=== PATIENT | female | born 1965 | race Hispanic/Latino ===

== ENCOUNTER → 2023-06-03 | Outpatient (CLI) | payer OTHER ==
[2023-06-03 09:30] LABS: BASOPHILS % (AUTO) 0.5 % (0.0-5.0); EOSINOPHILS % (AUTO) 3.1 % (0.0-8.0); HEMATOCRIT 41.1 % (36-48); LYMPHOCYTES % (AUTO) 46.8 % (21.0-51.0); MEAN CORPUSCULAR HEMOGLOBIN 31.6 pg (27.0-33.0); MEAN CORPUSCULAR HGB CONC 32.8 g/dL (32.0-36.0); MEAN CORPUSCULAR VOLUME 96.3 fL (79-99); MONOCYTES % (AUTO) 8.5 % (3.0-13.0); NEUTROPHILS % (AUTO) 40.9 % (40.0-77.0); PLATELET COUNT (AUTO) 169 K/uL (130-400); RED BLOOD CELL COUNT(AUTO) 4.27 MIL/uL (4.00-5.50); RED CELL DISTRIBUTION WIDTH 13.1 % (11.0-15.5); WHITE BLOOD COUNT (AUTO) 5.9 K/uL (4.8-10.8)
[2023-06-03 09:37] LABS: APPEARANCE,URINE CLEAR (CLEAR); BILIRUBIN,URINE NEGATIVE (NEGATIVE); COLOR,URINE LIGHT-YELLOW (YELLOW); GLUCOSE, URINE (UA) NEGATIVE (NEGATIVE); KETONES,URINE NEGATIVE (NEGATIVE); LEUKOCYTE ESTERASE ,URINE NEGATIVE Leu/uL (NEGATIVE); NITRATE,URINE NEGATIVE (NEGATIVE); OCCULT BLOOD,URINE SMALL (NEGATIVE); PROTEIN,URINE NEGATIVE (NEGATIVE); UROBILINOGEN,URINE 0.2 mg/dL (0.2-1.0)
[2023-06-03 09:38] LABS: HEMOGLOBIN A1C 5.6 % (4.0-6.0)
[2023-06-03 09:41] LABS: BACTERIA,URINE RARE /HPF (None Seen); MUCUS,URINE RARE LPF (None Seen); RBC,URINE 26-50 /HPF (0-1); SQUAMOUS EPITHELIAL CELL,UR RARE /HPF (0-2)
[2023-06-03 09:59] LABS: ALBUMIN 3.8 g/dL (3.5-5.0); CREATININE 0.9 mg/dL (0.5-1.5); POTASSIUM 4.1 mmol/L (3.5-5.1); THYROID STIMULATING HORMONE 8.51 uIU/mL (0.36-3.74); TOTAL PROTEIN, SERUM 7.4 g/dL (6.0-8.3)
== END | disposition home or self-care (01) ==
LOC: LAB 08:38
PROVIDERS: ATTEND Internal Medicine Nephrology
DX: Z00.01 Encounter for general adult medical examination with abnormal findings (principal)
CPT/HCPCS: 36415; 80053; 80061; 81001; 83036; 84443; 85025; 87088

== ENCOUNTER → 2023-07-08 | Outpatient (CLI) | payer OTHER | END | disposition home or self-care (01) | LOC: RAH 07:36 | PROVIDERS: ATTEND Obstetrics & Gynecology | DX: Z12.31 Encounter for screening mammogram for malignant neoplasm of breast (principal) | CPT/HCPCS: 77067 ==

== ENCOUNTER 2023-10-06 04:54 | Emergency (ER) | payer OTHER ==
[~2023-10-06] VITALS: Ht 154.9 cm; Wt 79.4 kg
[2023-10-06 08:02] VITALS: BP 132/74; PULSE 93; RESP 16; O2SAT 98
[2023-10-06 08:31] LABS: RAPID GROUP A STREP negative (NEGATIVE)
[2023-10-06 08:41] LABS: INFLUENZA TYPE B Negative For Type B (NEGATIVE)
[2023-10-06 08:49] LABS: COVID19 (SARS ANTIGEN RAPID) PRESUMPTIVE NEGATIVE (NEGATIVE)
[2023-10-06 09:45] LABS: INFLUENZA TYPE A Positive For Type A (NEGATIVE)
== END 2023-10-06 10:52 | disposition home or self-care (01) ==
LOC: EDH 04:54
DX: J11.1 Influenza due to unidentified influenza virus with other respiratory manifestations (principal); E03.9 Hypothyroidism, unspecified; Z20.822 Contact with and (suspected) exposure to COVID-19
CPT/HCPCS: 87426; 87804; 87880

== ENCOUNTER → 2023-11-26 | Outpatient (CLI) | payer OTHER ==
[2023-11-26 10:39] LABS: APPEARANCE,URINE CLEAR (CLEAR); BILIRUBIN,URINE NEGATIVE (NEGATIVE); COLOR,URINE YELLOW (YELLOW); GLUCOSE, URINE (UA) NEGATIVE (NEGATIVE); KETONES,URINE NEGATIVE (NEGATIVE); LEUKOCYTE ESTERASE ,URINE NEGATIVE Leu/uL (NEGATIVE); NITRATE,URINE NEGATIVE (NEGATIVE); OCCULT BLOOD,URINE SMALL (NEGATIVE); PH,URINE 5.5 (5.0-8.0); PROTEIN,URINE NEGATIVE (NEGATIVE); UROBILINOGEN,URINE 0.2 mg/dL (0.2-1.0)
[2023-11-26 10:47] LABS: ADD UA MICROSCOPIC YES
[2023-11-26 10:50] LABS: MUCUS,URINE RARE LPF (None Seen); SQUAMOUS EPITHELIAL CELL,UR RARE /HPF (0-2)
== END | disposition home or self-care (01) ==
LOC: LAB 09:28
PROVIDERS: ATTEND Internal Medicine Nephrology
DX: N39.0 Urinary tract infection, site not specified (principal)
CPT/HCPCS: 81001; 87088

== ENCOUNTER 2024-02-03 06:19 | Day surgery (SDC) | payer OTHER ==
[2024-02-03] VITALS (11 sets, daily range): BP systolic 90–116; BP diastolic 52–75; PULSE 59–95; RESP 15–17
[~2024-02-03] VITALS: Ht 154.9 cm; Wt 79.8 kg
[~2024-02-03 06:19] MED LIST: ATOR10 PO; CHOL100046 PO; CITA-107 PO; LEVO75CA5 PO; LEVO88CA4 PO; MAGN250T10 PO; OMEP-420 PO; VITA-395 PO
[2024-02-03] MEDS: 0.9%NACL 1000ML 1,000 ML IV ONE (07:00)
[2024-02-03] MEDS ORDERED: PROPOFOL 10 MG/ML 20ML VIAL IV ONE ×2 (08:07)
== END 2024-02-03 09:30 | disposition home or self-care (01) ==
LOC: DAH 06:19 → ENDO 06:19
PROVIDERS: ATTEND Internal Medicine Gastroenterology
DX: Z12.11 Encounter for screening for malignant neoplasm of colon (principal); K57.30 Diverticulosis of large intestine without perforation or abscess without bleeding; R12 Heartburn; R13.10 Dysphagia, unspecified; R14.0 Abdominal distension (gaseous); E78.00 Pure hypercholesterolemia, unspecified; E03.9 Hypothyroidism, unspecified; F41.9 Anxiety disorder, unspecified; F32.A Depression, unspecified; M81.0 Age-related osteoporosis without current pathological fracture; Z82.49 Family history of ischemic heart disease and other diseases of the circulatory system; Z83.3 Family history of diabetes mellitus; Z80.9 Family history of malignant neoplasm, unspecified; Z72.89 Other problems related to lifestyle; Z79.899 Other long term (current) drug therapy; Z79.890 Hormone replacement therapy
CPT/HCPCS: 45378; J7030 ×2; J2704 ×2; A4620; A4215; A4223; A4657; A7002; A4222; A4221; A4663; A4606; J3490

== ENCOUNTER → 2024-02-24 | Outpatient (CLI) | payer OTHER ==
[~2024-02-24] MED LIST changes: +CYAN250010 PO; +LORA10CA PO
[2024-02-24 08:26] LABS: BASOPHILS # (AUTO) 0.05 K/uL (0.00-0.20); BASOPHILS % (AUTO) 0.7 % (0.0-5.0); EOSINOPHILS # (AUTO) 0.12 K/uL (0.00-0.70); EOSINOPHILS % (AUTO) 1.8 % (0.0-8.0); HEMATOCRIT 39.4 % (36-48); IMMATURE GRANULOCYTE ABSOLUTE 0.01 K/uL (0-1); LYMPHOCYTES % (AUTO) 43.9 % (21.0-51.0); MEAN CORPUSCULAR HEMOGLOBIN 32.3 pg (27.0-33.0); MEAN CORPUSCULAR HGB CONC 33.2 g/dL (32.0-36.0); MEAN CORPUSCULAR VOLUME 97.3 fL (79-99); MONOCYTES # (AUTO) 0.5 K/uL (0.1-1.0); MONOCYTES % (AUTO) 7.2 % (3.0-13.0); NEUTROPHILS # (AUTO) 3.2 K/uL (1.8-7.7); NEUTROPHILS % (AUTO) 46.3 % (40.0-77.0); PLATELET COUNT (AUTO) 171 K/uL (130-400); RED BLOOD CELL COUNT(AUTO) 4.05 MIL/uL (4.00-5.50); RED CELL DISTRIBUTION WIDTH 12.9 % (11.0-15.5); WHITE BLOOD COUNT (AUTO) 6.9 K/uL (4.8-10.8)
[2024-02-24 15:32] LABS: HEMOGLOBIN A1C 5.7 % (4.0-6.0)
[2024-02-24 15:37] LABS: ALBUMIN 3.8 g/dL (3.5-5.0); BILIRUBIN,TOTAL 0.3 mg/dL (0.2-1.0); CREATININE 1.1 mg/dL (0.5-1.0); POTASSIUM 3.7 mmol/L (3.5-5.1); THYROID STIMULATING HORMONE 2.43 uIU/mL (0.36-3.74); TOTAL PROTEIN, SERUM 7.4 g/dL (6.0-8.3)
== END | disposition home or self-care (01) ==
LOC: LAB 07:59
PROVIDERS: ATTEND Internal Medicine Gastroenterology
DX: R14.0 Abdominal distension (gaseous) (principal); R10.31 Right lower quadrant pain
CPT/HCPCS: 36415; 80053; 80061; 82784; 83036; 83516; 84443; 85025; 86231; 86364

== ENCOUNTER → 2024-02-25 | Outpatient (CLI) | payer OTHER ==
[~2024-02-25] MED LIST changes: -CYAN250010 PO; -LORA10CA PO
== END | disposition home or self-care (01) ==
LOC: RAH 07:41
PROVIDERS: ATTEND Internal Medicine Gastroenterology
DX: R10.31 Right lower quadrant pain (principal)
CPT/HCPCS: 76700

== ENCOUNTER → 2024-02-29 | Outpatient (CLI) | payer OTHER ==
[~2024-02-29] MED LIST changes: +CYAN250010 PO; +LORA10CA PO
[2024-02-29 09:40] LABS: APPEARANCE,URINE CLEAR (CLEAR); BILIRUBIN,URINE NEGATIVE (NEGATIVE); COLOR,URINE LIGHT-YELLOW (YELLOW); GLUCOSE, URINE (UA) NEGATIVE (NEGATIVE); KETONES,URINE NEGATIVE (NEGATIVE); LEUKOCYTE ESTERASE ,URINE 250 Leu/uL (NEGATIVE); NITRATE,URINE NEGATIVE (NEGATIVE); OCCULT BLOOD,URINE SMALL (NEGATIVE); PROTEIN,URINE NEGATIVE (NEGATIVE); UROBILINOGEN,URINE 0.2 mg/dL (0.2-1.0)
[2024-02-29 11:40] LABS: ADD UA MICROSCOPIC YES
[2024-02-29 11:48] LABS: BACTERIA,URINE RARE /HPF (None Seen); MUCUS,URINE RARE LPF (None Seen); SQUAMOUS EPITHELIAL CELL,UR RARE /HPF (0-2)
== END | disposition home or self-care (01) ==
LOC: LAB 09:03
PROVIDERS: ATTEND Internal Medicine Nephrology
DX: R31.9 Hematuria, unspecified (principal); R10.31 Right lower quadrant pain; R10.12 Left upper quadrant pain; R13.10 Dysphagia, unspecified; R14.0 Abdominal distension (gaseous)
CPT/HCPCS: 81001; 81025; 87086; 87088

== ENCOUNTER 2024-03-03 07:04 | Day surgery (SDC) | payer OTHER ==
[2024-03-03] VITALS (11 sets, daily range): BP systolic 102–124; BP diastolic 51–65; PULSE 58–83; RESP 14–16
[~2024-03-03] VITALS: Ht 154.9 cm; Wt 78.0 kg
[2024-03-03] MEDS: 0.9%NACL 1000ML 1,000 ML IV ONE (08:12)
[2024-03-03] MEDS ORDERED: PROPOFOL 10 MG/ML 20ML VIAL IV ONE ×2 (10:07)
== END 2024-03-03 11:30 | disposition home or self-care (01) ==
LOC: ENDO 07:04 → DAH 07:04 → ENDO 11:30
PROVIDERS: ATTEND Internal Medicine Gastroenterology
DX: R10.13 Epigastric pain (principal); R10.31 Right lower quadrant pain; K44.9 Diaphragmatic hernia without obstruction or gangrene; K31.89 Other diseases of stomach and duodenum; K57.30 Diverticulosis of large intestine without perforation or abscess without bleeding; R13.10 Dysphagia, unspecified; R14.0 Abdominal distension (gaseous); E78.00 Pure hypercholesterolemia, unspecified; F41.9 Anxiety disorder, unspecified; E03.9 Hypothyroidism, unspecified; M81.0 Age-related osteoporosis without current pathological fracture; F32.A Depression, unspecified; Z98.890 Other specified postprocedural states; Z80.0 Family history of malignant neoplasm of digestive organs
CPT/HCPCS: 43239; J7030 ×2; J2704 ×2; A4620; A4215 ×2; A4223; A7002; A4222; A4221; A4663; A4606; 81025; J3490

== ENCOUNTER → 2024-03-21 | Outpatient (CLI) | payer OTHER | END | disposition home or self-care (01) | LOC: RAH 09:57 | PROVIDERS: ATTEND Internal Medicine Gastroenterology | DX: M16.11 Unilateral primary osteoarthritis, right hip (principal); R10.31 Right lower quadrant pain | CPT/HCPCS: 73502 ==

== ENCOUNTER 2024-06-24 19:09 | Emergency (ER) | payer OTHER ==
[~2024-06-24] VITALS: Ht 154.9 cm; Wt 79.4 kg
[2024-06-24] MEDS: IBUPROFEN 600 MG TABLET PO ONE (19:36)
[2024-06-24 21:10] VITALS: BP 124/65; PULSE 74; RESP 20; O2SAT 97
== END 2024-06-24 21:18 | disposition home or self-care (01) ==
LOC: EDH 19:09
DX: S60.221A Contusion of right hand, initial encounter (principal); X58.XXXA Exposure to other specified factors, initial encounter; Y93.89 Activity, other specified; Y92.89 Other specified places as the place of occurrence of the external cause; Y99.8 Other external cause status; E78.00 Pure hypercholesterolemia, unspecified; E03.9 Hypothyroidism, unspecified; Z79.899 Other long term (current) drug therapy
CPT/HCPCS: 29125; 73110; 73130

== ENCOUNTER 2024-08-08 13:31 | Emergency (ER) | payer OTHER ==
[~2024-08-08] VITALS: Ht 154.9 cm; Wt 78.5 kg
[2024-08-08 13:51] LABS: BASOPHILS # (AUTO) 0.03 K/uL (0.00-0.20); BASOPHILS % (AUTO) 0.5 % (0.0-5.0); EOSINOPHILS # (AUTO) 0.27 K/uL (0.00-0.70); EOSINOPHILS % (AUTO) 4.2 % (0.0-8.0); HEMATOCRIT 41.1 % (36-48); IMMATURE GRANULOCYTE ABSOLUTE 0.01 K/uL (0-1); LYMPHOCYTES # (AUTO) 2.1 K/uL (1.0-4.8); MEAN CORPUSCULAR HEMOGLOBIN 31.8 pg (27.0-33.0); MEAN CORPUSCULAR HGB CONC 34.3 g/dL (32.0-36.0); MEAN CORPUSCULAR VOLUME 92.8 fL (79-99); MONOCYTES # (AUTO) 0.6 K/uL (0.1-1.0); MONOCYTES % (AUTO) 8.5 % (3.0-13.0); NEUTROPHILS # (AUTO) 3.5 K/uL (1.8-7.7); NEUTROPHILS % (AUTO) 53.6 % (40.0-77.0); PLATELET COUNT (AUTO) 184 K/uL (130-400); RED BLOOD CELL COUNT(AUTO) 4.43 MIL/uL (4.00-5.50); RED CELL DISTRIBUTION WIDTH 12.7 % (11.0-15.5); WHITE BLOOD COUNT (AUTO) 6.5 K/uL (4.8-10.8)
[2024-08-08 14:09] LABS: B-TYPE NATRIURETIC PEPTIDE 10 pg/mL (0-100)
[2024-08-08 14:55] LABS: APPEARANCE,URINE CLEAR (CLEAR); BILIRUBIN,URINE NEGATIVE (NEGATIVE); COLOR,URINE LIGHT-YELLOW (YELLOW); GLUCOSE, URINE (UA) NEGATIVE (NEGATIVE); KETONES,URINE NEGATIVE (NEGATIVE); LEUKOCYTE ESTERASE ,URINE NEGATIVE Leu/uL (NEGATIVE); NITRATE,URINE NEGATIVE (NEGATIVE); OCCULT BLOOD,URINE SMALL (NEGATIVE); PROTEIN,URINE NEGATIVE (NEGATIVE); UROBILINOGEN,URINE 0.2 mg/dL (0.2-1.0)
[2024-08-08 14:56] LABS: ADD UA MICROSCOPIC YES
[2024-08-08 14:57] LABS: RBC,URINE 0-1 /HPF (0-1); SQUAMOUS EPITHELIAL CELL,UR RARE /HPF (0-2); WBC,URINE 0-1 /HPF (0-1)
[2024-08-08 15:25] VITALS: BP 133/70; PULSE 59; RESP 14; TEMP 98.4; O2SAT 100
== END 2024-08-08 16:08 | disposition home or self-care (01) ==
LOC: EDH 13:31
DX: R07.89 Other chest pain (principal); E03.9 Hypothyroidism, unspecified; E78.00 Pure hypercholesterolemia, unspecified; Z79.899 Other long term (current) drug therapy; Z98.890 Other specified postprocedural states
CPT/HCPCS: 36415; 71045; 80048; 81001; 82550; 83880; 84484; 85025; 93005

== ENCOUNTER → 2024-08-25 | Outpatient (CLI) | payer OTHER ==
[2024-08-25 09:30] LABS: BASOPHILS # (AUTO) 0.05 K/uL (0.00-0.20); BASOPHILS % (AUTO) 0.6 % (0.0-5.0); EOSINOPHILS # (AUTO) 0.29 K/uL (0.00-0.70); EOSINOPHILS % (AUTO) 3.8 % (0.0-8.0); HEMATOCRIT 40.5 % (36-48); IMMATURE GRANULOCYTE ABSOLUTE 0.02 K/uL (0-1); LYMPHOCYTES # (AUTO) 2.4 K/uL (1.0-4.8); LYMPHOCYTES % (AUTO) 30.5 % (21.0-51.0); MEAN CORPUSCULAR HEMOGLOBIN 31.5 pg (27.0-33.0); MEAN CORPUSCULAR HGB CONC 32.6 g/dL (32.0-36.0); MEAN CORPUSCULAR VOLUME 96.7 fL (79-99); MONOCYTES # (AUTO) 0.6 K/uL (0.1-1.0); MONOCYTES % (AUTO) 7.5 % (3.0-13.0); NEUTROPHILS # (AUTO) 4.4 K/uL (1.8-7.7); NEUTROPHILS % (AUTO) 57.3 % (40.0-77.0); PLATELET COUNT (AUTO) 163 K/uL (130-400); RED BLOOD CELL COUNT(AUTO) 4.19 MIL/uL (4.00-5.50); RED CELL DISTRIBUTION WIDTH 13.1 % (11.0-15.5); WHITE BLOOD COUNT (AUTO) 7.7 K/uL (4.8-10.8)
[2024-08-25 09:35] LABS: HEMOGLOBIN A1C 5.8 % (4.0-6.0)
[2024-08-25 09:53] LABS: ALBUMIN 3.5 g/dL (3.5-5.0); BILIRUBIN,TOTAL 0.8 mg/dL (0.2-1.0); POTASSIUM 3.9 mmol/L (3.5-5.1); THYROID STIMULATING HORMONE 1.24 uIU/mL (0.36-3.74); TOTAL PROTEIN, SERUM 7.3 g/dL (6.0-8.3)
== END | disposition home or self-care (01) ==
LOC: LAB 08:32
PROVIDERS: ATTEND Internal Medicine Nephrology
DX: E78.5 Hyperlipidemia, unspecified (principal); R73.03 Prediabetes; E03.9 Hypothyroidism, unspecified; D64.9 Anemia, unspecified; R94.4 Abnormal results of kidney function studies
CPT/HCPCS: 36415; 80053; 80061; 83036; 84443; 85025

== ENCOUNTER 2024-10-10 00:40 | Inpatient (IN) | payer OTHER ==
[~2024-10-10] VITALS: Ht 154.9 cm; Wt 78.2 kg
--- NOTE | 2024-10-10 00:45 | NUR ---
UA CUP PROVIDED
[2024-10-10 00:58] LABS: BASOPHILS # (AUTO) 0.03 K/uL (0.00-0.20); BASOPHILS % (AUTO) 0.3 % (0.0-5.0); EOSINOPHILS # (AUTO) 0.33 K/uL (0.00-0.70); EOSINOPHILS % (AUTO) 3.1 % (0.0-8.0); HEMATOCRIT 39.3 % (36-48); IMMATURE GRANULOCYTE ABSOLUTE 0.02 K/uL (0-1); LYMPHOCYTES # (AUTO) 2.9 K/uL (1.0-4.8); LYMPHOCYTES % (AUTO) 27.1 % (21.0-51.0); MEAN CORPUSCULAR HEMOGLOBIN 32.3 pg (27.0-33.0); MEAN CORPUSCULAR HGB CONC 33.8 g/dL (32.0-36.0); MEAN CORPUSCULAR VOLUME 95.4 fL (79-99); MONOCYTES # (AUTO) 0.8 K/uL (0.1-1.0); MONOCYTES % (AUTO) 7.5 % (3.0-13.0); NEUTROPHILS # (AUTO) 6.6 K/uL (1.8-7.7); NEUTROPHILS % (AUTO) 61.8 % (40.0-77.0); PLATELET COUNT (AUTO) 166 K/uL (130-400); RED BLOOD CELL COUNT(AUTO) 4.12 MIL/uL (4.00-5.50); RED CELL DISTRIBUTION WIDTH 13.2 % (11.0-15.5); WHITE BLOOD COUNT (AUTO) 10.6 K/uL (4.8-10.8)
[2024-10-10] MEDS: LACTATED RINGERS 1000ML 1,000 ML IV ONE (01:05)
[2024-10-10 01:06] LABS: CREATININE 0.9 mg/dL (0.5-1.0); POTASSIUM 3.9 mmol/L (3.5-5.1)
--- NOTE | 2024-10-10 01:21 | ERN ---
General Chief Complaint: Abdominal Pain Stated Complaint: ABD PAIN Time Seen by MD: 00:47 History of Present Illness Initial Comments Ms. Scanlon is a very pleasant 59-year-old female significant past medical history of hyperlipidemia, GERD, hypothyroidism, who presents today with a chief complaint of right lower quadrant abdominal pain patient reports pain is pinpoint and does not radiate. Describes the pain as moderate. Allergies: Coded Allergies: No Known Allergies (Unverified Allergy, Unknown, 10/06/23) Home Meds Reported Medications Loratadine (Claritin) 10 Mg Capsule, 10 MG PO DAILY, CAP 03/02/24 Cyanocobalamin (Vitamin B-12) (Vitamin B12) 2,500 Mcg Tablet, 2500 MCG PO DAILY, TAB 03/02/24 Vitamin E (Dl,Tocopheryl Acet) (Vitamin E) 180 Mg (400 Unit) Capsule, 180 MG PO DAILY, CAP 02/02/24 Cholecalciferol (Vitamin D3) (Vitamin D3) 25 Mcg (1000 Unit) Capsule, 25 MCG PO DAILY, CAP 02/02/24 Magnesium Oxide (Magnesium) 250 Mg Tablet, 250 MG PO DAILY, TAB 02/02/24 Citalopram Hydrobromide (Citalopram HBr) 20 Mg Tablet, 20 MG PO DAILY, TAB 02/02/24 Atorvastatin Calcium (LIPITOR) 20 Mg Tab, 20 MG PO DAILY, TAB 02/02/24 Omeprazole (Omeprazole) 20 Mg Tab.rap.dr, 20 MG PO AD 02/02/24 Levothyroxine Sodium (Levothyroxine) 88 Mcg Capsule, 88 MCG PO SAT,THU, CAP 02/02/24 Levothyroxine Sodium (Levothyroxine) 75 Mcg Capsule, 75 MCG PO MON,TUE,WED,JOSE,FRI, CAP 02/02/24 Past Medical History Past Medical History: No Pertinent History, High Cholesterol, Hypothyroid Past Surgical History: Other Surgical History Other: BILAT KNEE Female( History) History: Not Applicable ROS Dictation Constitutional: Negative for fever,chills, and weight loss Eyes: Negative for injury, pain,redness, and discharge ENT: Negative for injury,pain or swelling Cardiovascular: Respiratory: Negative for shortness of breath, cough, and wheezing, Abdomen/GI: Positive for right lower quadrant pain Back: Negative for injury and pain : Negative for injury, bleeding and discharge MS/Extremity: Negative for injury and deformity Skin: Negative for rash, and discoloration Neuro: Negative for headache, weakness, numbness, tingling, and seizure Psych: Negative for suicide ideation, homicidal ideation, and hallucinations Physical Exam Physical Exam Dictation General: awake, alert, NAD Head/Face: Normocephalic Eyes: PERRL, EOMI, vision at baseline ENT: oral cavity clear Neck: Trachea midline, supple Cardiovascular: RRR, normal S1/S2 Respiratory: CTAB, no respiratory distress, No rales or wheezes Abdomen: Pain with palpation in the right lower quadrant Skin: Warm, dry MS/Extremity: Pulses equal Neuro: COAx4, GCS 15, strength 5/5 Results Laboratory and Microbiology Lab and Micro Result Laboratory Tests Test 10/10/24 00:50 10/10/24 01:25 White Blood Count 10.6 K/uL (4.8-10.8) Red Blood Count 4.12 MIL/uL (4.00-5.50) Hemoglobin 13.3 g/dL (12.0-16.0) Hematocrit 39.3 % (36-48) Mean Corpuscular Volume 95.4 fL (79-99) Mean Corpuscular Hemoglobin 32.3 pg (27.0-33.0) Mean Corpuscular Hemoglobin Concent 33.8 g/dL (32.0-36.0) Red Cell Distribution Width 13.2 % (11.0-15.5) Platelet Count 166 K/uL (130-400) Mean Platelet Volume 10.5 fL (7.5-10.5) Immature Granulocyte % (Auto) 0.2 % (0-1) Neutrophils (%) (Auto) 61.8 % (40.0-77.0) Lymphocytes (%) (Auto) 27.1 % (21.0-51.0) Monocytes (%) (Auto) 7.5 % (3.0-13.0) Eosinophils (%) (Auto) 3.1 % (0.0-8.0) Basophils (%) (Auto) 0.3 % (0.0-5.0) Neutrophils # (Auto) 6.6 K/uL (1.8-7.7) Lymphocytes # (Auto) 2.9 K/uL (1.0-4.8) Monocytes # (Auto) 0.8 K/uL (0.1-1.0) Eosinophils # (Auto) 0.33 K/uL (0.00-0.70) Basophils # (Auto) 0.03 K/uL (0.00-0.20) Absolute Immature Granulocyte (auto 0.02 K/uL (0-1) Nucleated Red Blood Cells 0.0 % (0.0-0.19) Sodium Level 141 mmol/L (136-145) Potassium Level 3.9 mmol/L (3.5-5.1) Chloride Level 102 mmol/L (101-111) Carbon Dioxide Level 32 mmol/L (21-32) Blood Urea Nitrogen 16 mg/dL (7-18) Creatinine 0.9 mg/dL (0.5-1.0) Glomerular Filtration Rate Calc 74 mL/min (>90) Random Glucose 104 mg/dL (70-105) Total Calcium 9.1 mg/dL (8.5-10.1) Troponin I High Sensitivity 117 ng/L (4-50) *H Lipase 61 U/L (16-77) Urine Color LIGHT-YELLOW (YELLOW) Urine Appearance CLEAR (CLEAR) Urine pH 6.0 (5.0-8.0) Urine Specific [place] 1.017 (1.001-1.031) Urine Protein NEGATIVE mg/dL (NEGATIVE) Urine Glucose (UA) NEGATIVE mg/dL (NEGATIVE) Urine Ketones NEGATIVE mg/dL (NEGATIVE) Urine Occult Blood SMALL (NEGATIVE) H Urine Nitrate NEGATIVE (NEGATIVE) Urine Bilirubin NEGATIVE mg/dL (NEGATIVE) Urine Urobilinogen 0.2 mg/dL (0.2-1.0) Urine Leukocyte Esterase NEGATIVE Darrel/uL Urine RBC 2-5 /HPF (0-1) H Urine WBC 0-1 /HPF (0-1) Urine Squamous Epithelial Cells RARE /HPF (0-2) Urine Bacteria None /HPF (None Seen) MDM Patient will be admitted for pancreatitis and NSTEMI. MDM: Differential diagnosis: Pancreatitis/NSTEMI Rationale: Tests considered and ordered secondary to shared decision making include: labs, ECG and radiology Previous outside records reviewed: Old ER visits. Risk of complication and/or morbidity or mortality of patient management: None Medications-Per medication reconciliation Need for hospitalization: Patient does meet criteria for hospitalization. Need for emergency major/minor surgery: No There are no social concerns with this patient. Prescription drug management Prescriptions will include symptomatic care Patient's prior external medical records from other ER visits were reviewed by me as indicated. Prior testing and results from previous visits were reviewed. Prior tests were taken into account with medical decision making and resource utilization, independent historian/historians were used to obtain complete medical history. I independently interpreted the test that were performed, results were reviewed by me and considered findings on radiology if ordered. Medical management and examination interpretation discussions were had by me with other qualified healthcare professionals as indicated for the patient's care. ED Course Orders Procedure Category Date Status Time Vital Signs Per CPOE 10/10/24 Transmitted Routine 00:46 Saline Lock Iv CPOE 10/10/24 Transmitted 00:46 Cbc With Differential LAB 10/10/24 Complete 00:46 Lipase LAB 10/10/24 Complete 00:46 Urinalysis Profile LAB 10/10/24 Complete 00:46 12 Lead Ekg Tracing- EKG 10/10/24 Logged Technical 00:46 Troponin I High LAB 10/10/24 Complete Sensitivity 00:46 Basic Metabolic Panel LAB 10/10/24 Complete 00:46 Ct Abdomen/Pelvis CT 10/10/24 Taken W/Contrast 01:00 Lactated Ringers PHA 10/10/24 In Process 1000ml (Lactated 01:00 Morphine 4mg Syg PHA 10/10/24 Complete (Morphine 4mg Syg) 01:00 Ondansetron 4mg Inj PHA 10/10/24 Complete (Zofran 4mg Inj) 01:00 Iohexol (Omnipaque) PHA 10/10/24 Complete 01:56 Current Medications Medications (Trade) Dose Ordered Sig/Andrea Route PRN Reason Start Time Stop Time Status Last Admin Dose Admin Iohexol (Omnipaque) 75 ml STK-MED ONCE IV 10/10/24 01:56 10/10/24 01:57 DC Lactated Ringer's 1,000 ml @ 0 mls/hr ONCE ONCE IV 10/10/24 01:00 10/10/24 01:01 DC 10/10/24 01:05 Morphine Sulfate (morPHINE 4MG SYG) 4 mg ONCE ONCE IVP 10/10/24 01:00 10/10/24 01:01 DC 10/10/24 01:33 Ondansetron HCl (zoFRAN 4MG INJ) 4 mg ONCE ONCE IVP 10/10/24 01:00 10/10/24 01:01 DC 10/10/24 01:33 Vital Signs Date Time Temp Pulse Resp B/P (MAP) Pulse Ox O2 Delivery O2 Flow Rate FiO2 10/10/24 01:05 97.2 62 18 156/76 95 Room Air* 0 21 10/10/24 00:42 96.8 71 16 161/84 98 Room Air DX & DISP Disposition: Inpatient Departure Impression: Primary Impression: NSTEMI (non-ST elevated myocardial infarction) Additional Impression: Pancreatitis Condition: Stable Referrals: JULIAN JIN MD (PCP) DONG SUNG MD Oct 10, 2024 01:21
[2024-10-10] MEDS: morPHINE 4 MG SYG IVP ONE (01:33)
[2024-10-10] MEDS: ondanSETRON 4MG INJ IVP ONE (01:33)
[2024-10-10] MEDS ORDERED: IOHEXOL-350 75 ML VIAL IV ONE (01:56)
[2024-10-10 02:00] LABS: APPEARANCE,URINE CLEAR (CLEAR); BILIRUBIN,URINE NEGATIVE (NEGATIVE); COLOR,URINE LIGHT-YELLOW (YELLOW); GLUCOSE, URINE (UA) NEGATIVE (NEGATIVE); KETONES,URINE NEGATIVE (NEGATIVE); LEUKOCYTE ESTERASE ,URINE NEGATIVE Leu/uL (NEGATIVE); NITRATE,URINE NEGATIVE (NEGATIVE); OCCULT BLOOD,URINE SMALL (NEGATIVE); PROTEIN,URINE NEGATIVE (NEGATIVE); UROBILINOGEN,URINE 0.2 mg/dL (0.2-1.0)
[2024-10-10 02:01] LABS: ADD UA MICROSCOPIC YES
[2024-10-10 02:04] LABS: MUCUS,URINE RARE LPF (None Seen); SQUAMOUS EPITHELIAL CELL,UR RARE /HPF (0-2); WBC,URINE 0-1 /HPF (0-1)
[2024-10-10] MEDS ORDERED: ondanSETRON 4MG INJ IVP PRN (03:30)
[2024-10-10] MEDS ORDERED: acetaMINOPHEN 325 MG TAB PO PRN (03:30)
[2024-10-10] MEDS ORDERED: morPHINE 2 MG SYG IVP PRN (03:30)
[2024-10-10 04:00] VITALS: BP 146/48; PULSE 81; RESP 18; TEMP 98
--- NOTE | 2024-10-10 04:14 | NUR ---
REPORT GIVEN TO CULLEN ANDREWS
[2024-10-10] MEDS: DEXTROSE 5 % AND 0.9 % NACL 1,000 ML IV SCH (04:23)
[2024-10-10 06:06] VITALS: O2SAT 98
--- NOTE | 2024-10-10 07:28 | EKG ---
[facility] Test Date: 2024-10-10 Test Time: 01:16:57 Pat Name: BETH KENNEDY Department: [facility] Room: 311 1 Gender: F Conveyor Tender: [id number] : 1965 Requested By: DONG SUNG Order Number: [id number] Reading MD: Rodger Silva Measurements Intervals [place] Rate: 64 P: 12 MD: 157 QRS: 20 QRSD: 77 T: 1 QT: 440 QTc: 455 Interpretive Statements Sinus rhythm Compared to ECG 08/08/2024 13:38:14 No significant changes Electronically Signed On 10-11-2024 18:09:42 MENTAL HEALTH PRACTITIONER by Rodger Silva Please click the below link to view image of tracing.
[2024-10-10] MEDS ORDERED: PANTOPrazole 40 MG TAB DR PO PRN (07:30)
[2024-10-10 08:00] VITALS: O2SAT 92
--- NOTE | 2024-10-10 08:14 | HMCIMG ---
CT ABDOMEN/PELVIS W/CONTRAST REASON: Abdominal Pain COMPARISON: None. FINDINGS: Lung bases are clear. There are no focal liver lesions. There are normal-appearing kidneys.. Spleen appears unremarkable. There some mild haziness around the head and uncinate process of the pancreas, body and tail appear unremarkable. This could be early or mild pancreatitis.. The gallbladder appears normal as well. Bowel loops appear unremarkable. There is an appendicolith in the base of an otherwise normal-appearing appendix. There is no evidence of free fluid or intraperitoneal air. There are no focal fluid collections. Aorta and retroperitoneum appear normal as do pelvic soft tissue structures. The anterior abdominal wall is intact. Osseous structures appear unremarkable. IMPRESSION: 1. Haziness around the head and uncinate process of pancreas which could represent early or mild pancreatitis. 2. No other acute finding. CT was performed with one or more following dose reduction techniques: automated exposure control, adjustment of the mA and kv according to patient's size, or use of a iterative reconstruction technique.
[2024-10-10] MEDS: CYANOCOBALAMIN 2500 MCG PO SCH (08:41)
[2024-10-10] MEDS: MAGNESIUM OXIDE 250 MG PO SCH (08:41)
[2024-10-10] MEDS: (Cholecalciferol (Vitamin D3) (Vitamin D3) 25 MCG) PO SCH (08:41)
[2024-10-10 08:49] VITALS: BP 120/68; PULSE 63; RESP 18; TEMP 98.4
[2024-10-10] MEDS: citaLOPram 20 MG TABLET PO SCH (09:00)
[2024-10-10] MEDS: LORATAdine 10 mg 10 MG TABLET PO SCH (09:00)
[2024-10-10] MEDS: ENOXAPARIN SODIUM 30 MG/0.3 ML SQ SCH (09:28)
[2024-10-10 11:22] VITALS: BP 107/56; PULSE 61; RESP 18; TEMP 98.3
[2024-10-10] MEDS ORDERED: DiphenhydrAMINE HCL 25 MG/10 ML ELIXIR UDCUP PO PRN (12:00)
[2024-10-10 13:28] LABS: AMYLASE 25 U/L (25-115)
--- NOTE | 2024-10-10 15:30 | NUR ---
PATIENT DISCHARGED HOME ID BAND AND IV REMOVED. DISCHARGE INSTRUCTIONS EXPLAINED AND GIVEN TO PATIENT. PATIENT VERBALIZED UNDERSTANDING. BELONGINGS PACKED AND TAKEN BY PATIENT. WHEELED DOWN TO PRIVATE CAR.
--- NOTE | 2024-10-10 15:58 | DS ---
Discharge Summary Hospital Course This is a 59-year-old female patient with past medical history of GERD, hypothyroidism and hyperlipidemia who presented to the hospital with chief complaint of right lower quadrant abdominal pain. No reports of nausea or vomiting. A CT of the abdomen and pelvis done on admission showed haziness around the head of the pancreas which could represent early or mild pancreatitis. The lipase however was 61 and patient was admitted for [facility] ion. During examination this afternoon patient denie nausea or vomiting. The repeat lipase level is 26 and a Amylase level of 25. Patient is afebrile temperature is 98.2. We will discharge patient to home today and she is to follow up with her PCP in 3-5 days. FINAL DISCHARGE DIAGNOSIS: Abdominal pain, Possible pancreatitis. Elevated troponin, asymptomatic. Hypothyroidism. PLAN: Discharge patient to home today. Follow up with PCP in 3-5 days. This case was reviewed and discussed with my supervising physician and the above assessment and plan was formulated and agreed upon. ATTESTATION BY PHYSICIAN I have seen and examined the patient. I reviewed the documentation, medical decision making, and treatment plan as noted by the mid-level provider above. I agree with the findings and plan of care. RAJANI MAGUIRE MD, [facility] Oct 10, 2024 15:58
--- NOTE | 2024-10-10 16:06 | HP ---
PRESENTING COMPLAINT: Abdominal pain. HISTORY OF PRESENT ILLNESS: A 59-year-old female with history of obesity, dyslipidemia, and hypothyroidism, presented to the hospital with abdominal pain. Pain localized to the right lower quadrant with no radiation. No nausea or vomiting and denies diarrhea. The patient was found with a lipase of 61. CT of the abdomen was done, which is showing possible subtle enhancement involving the head of the pancreas. The patient for admission for pancreatitis. PAST MEDICAL HISTORY: 1. Obesity. 2. Dyslipidemia. 3. GERD. 4. Hypothyroidism. PAST SURGICAL HISTORY: Bilateral knee surgery. ALLERGIES: No known drug allergy. HOME MEDICATIONS: Reviewed, include Synthroid. SOCIAL HISTORY: Denies alcohol, tobacco, or illicit drug use. FAMILY HISTORY: Noncontributory. REVIEW OF SYSTEMS: Greater than 10 systems were reviewed, negative except as documented above. PHYSICAL EXAMINATION: GENERAL: A young female, awake. VITAL SIGNS: Temperature 98.6, pulse 61, respiratory rate 18, BP 107/56. EYES: No icterus. Pupils equal and reactive. HENT: No oral thrush seen. Moist oral mucosa. NECK: Supple. No JVD or thyromegaly. LUNGS: Good air entry. No rales, no rhonchi. CARDIOVASCULAR SYSTEM: S1, S2 regular. No murmur heard. ABDOMEN: Full, soft. Bowel sounds present. Nontender. CENTRAL NERVOUS SYSTEM: Awake, alert, oriented x 3. No focal deficits. SKIN: No rashes, no itchiness. LYMPHATIC: No peripheral lymphadenopathy. BACK: No deformity, no pressure ulcer. HEMATOLOGIC: No bleeding or petechial lesion seen. LABORATORY DATA: Troponin 99. Lipase 61. Sodium 141, potassium 3.9, BUN 16, creatinine 0.9. WBC 10.0, hemoglobin 13.3, platelets 166. RADIOLOGY: CT of the abdomen shows subtle enhancement involving the pancreatic head. ASSESSMENT: 1. A 59-year-old female presented with abdominal pain abdominal pain. 2. No evidence of pancreatitis. 3. Hypothyroidism. PLAN: 1. The patient will be admitted for observation. 2. Morphine as needed for pain. 3. Tylenol as needed for pain. 4. The patient will be placed on IV fluids. 5. Continue Synthroid. 6. Lipase will be trended. TID: [id number] RECEIPT: [id number]
[2024-10-10] MEDS ORDERED: atorVAStatin 20 MG TABLET PO SCH (21:00)
--- NOTE | 2024-10-11 05:23 | DS ---
DATE OF SERVICE: 10/10/2024 PRESENTING COMPLAINT: Abdominal pain. HOSPITAL COURSE: A 59-year-old female with history of obesity and hypothyroidism, presented to the hospital with abdominal pain. Pain localized to the lower quadrant. The patient was admitted as a case of possible pancreatitis. Serial lipase came back normal with a repeat one of 25. Amylase is also normal. The patient ____ resolved, tolerating orally. FINAL DISCHARGE DIAGNOSES: * Nonspecific abdominal pain. * No evidence of pancreatitis. * Hypothyroidism. PLAN: * The patient to be discharged home. * The patient to continue home medication. * Follow up with primary care physician. * The patient advised to return to Emergency Room if abdominal pain worsens. TID: [id number] RECEIPT: [id number]
[2024-10-11] MEDS ORDERED: levoTHYROxine 75 MCG TABLET PO SCH (06:30)
[2024-10-15] MEDS ORDERED: levoTHYROxine 88 MCG TABLET PO SCH (09:00)
== END 2024-10-10 15:30 | disposition home or self-care (01) | DRG 440 ==
LOC: EDH 00:40 → EDHIP 03:12 → 3BH 03:50
PROVIDERS: ADMIT Internal Medicine Infectious Disease; ATTEND Internal Medicine Infectious Disease
DX: K85.90 Acute pancreatitis without necrosis or infection, unspecified (principal); E03.9 Hypothyroidism, unspecified; E66.9 Obesity, unspecified; E78.5 Hyperlipidemia, unspecified; K21.9 Gastro-esophageal reflux disease without esophagitis; Z79.899 Other long term (current) drug therapy; Z68.32 Body mass index [BMI] 32.0-32.9, adult
CPT/HCPCS: 36415; 74177; 80048; 81001; 82150; 83690; 84484; 85025; 93005; 96372; 96374; 96375; 99285; G0378; J1650; J2270; J2405; J7042; J7120; Q9967

== ENCOUNTER → 2024-11-07 | Outpatient (CLI) | payer OTHER ==
[~2024-11-07] MED LIST changes: -VITA-395 PO
[2024-11-07 08:37] LABS: CREATININE 0.9 mg/dL (0.5-1.0); POTASSIUM 4.2 mmol/L (3.5-5.1)
== END | disposition home or self-care (01) ==
LOC: LAB 07:13
PROVIDERS: ATTEND Student in an Organized Health Care Education/Training Program
DX: R07.89 Other chest pain (principal)
CPT/HCPCS: 36415; 80048

== ENCOUNTER → 2024-11-18 | Outpatient (CLI) | payer OTHER ==
[~2024-11-18] MED LIST changes: +IOHEXOL 350 MG/ML 100ML INFUS..BTL IV ONE
--- NOTE | 2024-11-18 09:39 | HMCIMG ---
CT CARDIAC ANGIO W/CONT. CCTA REASON: OTHER CHEST PAIN COMPARISON: None TECHNIQUE: Images are obtained through the heart in the axial plane before and during bolus IV contrast infusion, 100 cc Omnipaque 350. 2-D and 3-D multiplanar reconstruction images were then performed. The injection had to be repeated once due to motion artifact on the first sequence, total contrast volume was 200 cc. FINDINGS: This dictation is for the noncardiac findings only. Cardiac and coronary artery findings are reported separately. Visualized portions of the lungs are clear. There is normal-appearing pulmonary interstitium. There is no hilar or mediastinal lymphadenopathy. Chest wall structures appear unremarkable. IMPRESSION: 1. Unremarkable noncardiac portions of CT cardiac angiography.
== END | disposition home or self-care (01) ==
LOC: RAH 07:40
PROVIDERS: ATTEND Student in an Organized Health Care Education/Training Program
DX: R07.89 Other chest pain (principal)
CPT/HCPCS: 75574; Q9967

== ENCOUNTER 2025-01-05 07:43 | Day surgery (SDC) | payer OTHER ==
[2025-01-05] VITALS (10 sets, daily range): BP systolic 106–127; BP diastolic 55–62; PULSE 59–71; RESP 14–18; TEMP 97.7–98
[~2025-01-05] VITALS: Ht 154.9 cm; Wt 80.7 kg
[~2025-01-05 07:43] MED LIST changes: -IOHEXOL 350 MG/ML 100ML INFUS..BTL IV ONE
[2025-01-05] MEDS ORDERED: MELA10TA2 PO (09:25)
[2025-01-05] MEDS: 0.9%NACL 1000ML 1,000 ML IV ONE (10:03)
[2025-01-05] MEDS ORDERED: proPOFol 10 MG/ML 20ML VIAL IV ONE (10:42)
--- NOTE | 2025-01-05 11:46 | NUR ---
Full and complete discharge instructions given to Patient and Family both verbally and in writing. Explained GI procedure precautions and follow up. All questions answered. PIV removed with catheter tip intact. Home with Family W/C to POV.
== END 2025-01-05 12:00 | disposition home or self-care (01) ==
LOC: ENDO 07:43 → DAH 07:43 → ENDO 12:00
PROVIDERS: ATTEND Internal Medicine
DX: R93.3 Abnormal findings on diagnostic imaging of other parts of digestive tract (principal); K86.9 Disease of pancreas, unspecified; R93.5 Abnormal findings on diagnostic imaging of other abdominal regions, including retroperitoneum; R14.2 Eructation; K44.9 Diaphragmatic hernia without obstruction or gangrene; K31.A15 Gastric intestinal metaplasia without dysplasia, involving multiple sites; K57.30 Diverticulosis of large intestine without perforation or abscess without bleeding; F41.9 Anxiety disorder, unspecified; E03.9 Hypothyroidism, unspecified; E78.00 Pure hypercholesterolemia, unspecified; M81.0 Age-related osteoporosis without current pathological fracture; F32.A Depression, unspecified; Z80.0 Family history of malignant neoplasm of digestive organs; Z79.899 Other long term (current) drug therapy
CPT/HCPCS: 43259; J7030; J2704; A4620; A4215 ×2; A4223; A4222; A4221; A4663; A4606; 43237; J3490

== ENCOUNTER → 2025-02-28 | Outpatient (CLI) | payer OTHER ==
[~2025-02-28] MED LIST changes: -LEVO75CA5 PO; +LEVO75CA6 PO; -LEVO88CA4 PO; +LEVO88CA5 PO; -LORA10CA PO; +MELA10TA2 PO; -OMEP-420 PO
[2025-02-28 10:16] LABS: BASOPHILS # (AUTO) 0.04 K/uL (0.00-0.20); BASOPHILS % (AUTO) 0.7 % (0.0-5.0); EOSINOPHILS # (AUTO) 0.21 K/uL (0.00-0.70); EOSINOPHILS % (AUTO) 3.7 % (0.0-8.0); IMMATURE GRANULOCYTE ABSOLUTE 0.01 K/uL (0-1); LYMPHOCYTES % (AUTO) 34.6 % (21.0-51.0); MEAN CORPUSCULAR HEMOGLOBIN 32.1 pg (27.0-33.0); MEAN CORPUSCULAR HGB CONC 33.1 g/dL (32.0-36.0); MONOCYTES # (AUTO) 0.5 K/uL (0.1-1.0); MONOCYTES % (AUTO) 8.9 % (3.0-13.0); NEUTROPHILS % (AUTO) 51.9 % (40.0-77.0); PLATELET COUNT (AUTO) 175 K/uL (130-400); RED BLOOD CELL COUNT(AUTO) 4.33 MIL/uL (4.00-5.50); WHITE BLOOD COUNT (AUTO) 5.7 K/uL (4.8-10.8)
[2025-02-28 10:22] LABS: APPEARANCE,URINE CLEAR (CLEAR); BILIRUBIN,URINE NEGATIVE (NEGATIVE); COLOR,URINE COLORLESS (YELLOW); GLUCOSE, URINE (UA) NEGATIVE (NEGATIVE); KETONES,URINE NEGATIVE (NEGATIVE); LEUKOCYTE ESTERASE ,URINE NEGATIVE Leu/uL (NEGATIVE); NITRATE,URINE NEGATIVE (NEGATIVE); PH,URINE 5.5 (5.0-8.0); PROTEIN,URINE NEGATIVE (NEGATIVE); UROBILINOGEN,URINE 0.2 mg/dL (0.2-1.0)
[2025-02-28 10:25] LABS: ADD UA MICROSCOPIC YES
[2025-02-28 10:26] LABS: BACTERIA,URINE None Seen /HPF (None Seen); MUCUS,URINE Rare LPF (None Seen); RBC,URINE 0-1 /HPF (0-1); SQUAMOUS EPITHELIAL CELL,UR Rare /HPF (0-2); WBC,URINE 0-1 /HPF (0-1)
[2025-02-28 10:29] LABS: HEMOGLOBIN A1C 5.8 % (4.0-6.0)
[2025-02-28 10:39] LABS: ALBUMIN 3.6 g/dL (3.5-5.0); BILIRUBIN,TOTAL 0.6 mg/dL (0.2-1.0); CREATININE 0.8 mg/dL (0.5-1.0); MAGNESIUM 2.1 mg/dL (1.80-2.40); PHOSPHORUS 3.2 mg/dL (2.5-4.9); POTASSIUM 3.9 mmol/L (3.5-5.1); THYROID STIMULATING HORMONE 0.45 uIU/mL (0.36-3.74); TOTAL PROTEIN, SERUM 7.2 g/dL (6.0-8.3)
== END | disposition home or self-care (01) ==
LOC: LAB 09:36
PROVIDERS: ATTEND Internal Medicine Nephrology
DX: E03.9 Hypothyroidism, unspecified (principal); E78.5 Hyperlipidemia, unspecified; R73.03 Prediabetes; R94.4 Abnormal results of kidney function studies
CPT/HCPCS: 36415; 80053; 80061; 81001; 82570; 83036; 83735; 84100; 84156; 84443; 85025

== ENCOUNTER → 2025-03-07 | Outpatient (CLI) | payer OTHER ==
--- NOTE | 2025-03-07 10:07 | HMCIMG ---
Exam Type: HIP UNILAT 2-3VW RIGHT Clinical Information: PAIN IN RIGHT HIP Comparison: None Findings: The bone examination is unremarkable. No fractures or dislocations are seen. No radiopaque foreign bodies are noted. Soft tissues are preserved. IMPRESSION: Normal examination.
== END | disposition home or self-care (01) ==
LOC: RAH 09:04
PROVIDERS: ATTEND Internal Medicine Nephrology
DX: M25.551 Pain in right hip (principal)
CPT/HCPCS: 73502

== ENCOUNTER 2025-07-16 23:44 | Emergency (ER) | payer OTHER ==
[~2025-07-16] VITALS: Ht 154.9 cm; Wt 79.4 kg
[2025-07-17] MEDS ORDERED: CYCL-309 PO (01:07)
[2025-07-17] MEDS ORDERED: KETO10TA2 PO (01:07)
--- NOTE | 2025-07-17 01:08 | ERN ---
General Chief Complaint: Hip Pain/Injury Stated Complaint: RT HIP PAIN Time Seen by MD: 00:10 Time Seen by Midlevel: 00:10 Source: patient History of Present Illness Initial Comments Patient is a 59-year-old female presenting to the ER with right. Pain is chronic in nature. She denies any direct injury or trauma. She has already been seen multiple times by primary care doctor and imaging has been performed. Allergies: Coded Allergies: No Known Allergies (Unverified Allergy, Unknown, 10/06/23) Home Meds Reported Medications Melatonin (Melatonin) 10 Mg Tablet, 20 MG PO DAILY, TAB 01/05/25 Cyanocobalamin (Vitamin B-12) (Vitamin B12) 2,500 Mcg Tablet, 2500 MCG PO DAILY, TAB 03/02/24 Cholecalciferol (Vitamin D3) (Vitamin D3) 25 Mcg (1000 Unit) Capsule, 25 MCG PO DAILY, CAP 02/02/24 Magnesium Oxide (Magnesium) 250 Mg Tablet, 250 MG PO QODAY, TAB 02/02/24 Citalopram Hydrobromide (Citalopram HBr) 20 Mg Tablet, 20 MG PO DAILY, TAB 02/02/24 Atorvastatin Calcium (LIPITOR) 20 Mg Tab, 20 MG PO DAILY, TAB 02/02/24 Levothyroxine Sodium (Levothyroxine) 88 Mcg Capsule, 88 MCG PO SAT,THU, CAP 02/02/24 Levothyroxine Sodium (Levothyroxine) 75 Mcg Capsule, 75 MCG PO MON,TUE,WED,JOSE,FRI, CAP 02/02/24 Past Medical History Past Medical History: No Pertinent History, High Cholesterol, Hypothyroid Past Surgical History: Other Surgical History Other: BILAT KNEE Female( History) History: Not Applicable ROS Dictation CONSTITUTIONAL: Negative except for HPI HEAD/FACE: Negative except for HPI EENT: Negative except for HPI RESPIRATORY: Negative except for HPI GASTROINTESTINAL/ABDOMINAL: Negative except for HPI GENITOURINARY: Negative except for HPI MUSCULOSKELETAL: Negative except for HPI INTEGUMENTARY: Negative except for HPI NEUROLOGICAL/PSYCH: Negative except for HPI HEMATOLOGIC/LYMPHATIC: Negative except for HPI All Systems Negative, Except as noted above. 13 point review of systems assessed and all negative except for above. Physical Exam Physical Exam Dictation PHYSICAL EXAM: GENERAL: alert,, awake oriented x 3 HEENT: EOMI, Sclera non icteric, moist mucosa NECK: Supple, no JVD, trachea midline LUNGS: Clear breath sounds bilaterally. No wheezes HEART: Regular rate and rhythm. Normal S1 and S2, without murmurs ABD: Abdomen soft, nontender. Bowel sounds present EXT: No clubbing or cyanosis, NEURO: Alert and oriented to person, follows commands MDM MDM: Differential diagnosis: chronic pain, dislocation, contusion, There are no social concerns with this patient. Prescription drug management Prescriptions will include: Toradol, flexeril Medical management and examination interpretation discussions were had by me with other qualified healthcare professionals as indicated for the patient's care. ED Course Orders Procedure Category Date Status Time Ketorolac PHA 07/17/25 Logged Tromethamine 30mg/Ml 01:00 Hydrocodone/Apap PHA 07/17/25 Logged 5/325 (Springer 5/325mg) 01:00 Current Medications Medications (Trade) Dose Ordered Sig/Andrea Route PRN Reason Start Time Stop Time Status Last Admin Dose Admin Acetaminophen/ Hydrocodone Bitart (NORco 5/325MG) 1 tab ONCE ONCE PO 07/17/25 01:00 07/17/25 01:01 UNV Ketorolac Tromethamine (toRADol) 30 mg ONCE ONCE IM 07/17/25 01:00 07/17/25 01:01 UNV Vital Signs Date Time Temp Pulse Resp B/P (MAP) Pulse Ox O2 Delivery O2 Flow Rate FiO2 07/17/25 00:11 98.4 75 19 150/70 97 Room Air* 0 21 07/16/25 23:46 98.8 74 16 156/72 99 Room Air DX & DISP Disposition: Discharge Departure Impression: Primary Impression: Chronic right hip pain Condition: Stable Scripts Cyclobenzaprine HCl (Cyclobenzaprine HCl) 10 Mg Tablet 1 TAB PO TID for muscle spasms for 10 Days, #30 TAB 0 Refills Prov: GISELA RAMÍREZ 07/17/25 Ketorolac Tromethamine (Ketorolac Tromethamine) 10 Mg Tablet 1 TAB PO BID for pain for 5 Days, #10 TAB 0 Refills Prov: GISELA RAMÍREZ 07/17/25 Referrals: JULIAN JIN MD (PCP) I have reviewed the case, and I agree with, Diagnosis and Plan I performed the substantive portion of the visit. I have reviewed and personally made and approve the management plan that is documented in the note by myself or the PETROS. I acknowledge for responsibility for the patient's management plan. GISELA RAMÍREZ Jul 17, 2025 01:08
[2025-07-17] MEDS: HYDROcodone/APAP 5/325 1 TAB TABLET PO ONE (01:10)
[2025-07-17 01:18] VITALS: BP 148/72; PULSE 70; RESP 17; TEMP 98.4; O2SAT 99
== END 2025-07-17 01:24 | disposition home or self-care (01) ==
LOC: EDH 23:44
DX: G89.29 Other chronic pain (principal); M25.551 Pain in right hip
CPT/HCPCS: 99283; 96372; J1885

== ENCOUNTER → 2025-08-10 | Outpatient (CLI) | payer OTHER ==
[~2025-08-10] MED LIST changes: +CYCL-309 PO; +KETO10TA2 PO
--- NOTE | 2025-08-10 10:39 | HMCIMG ---
CLINICAL INDICATION: Asymptomatic menopausal state COMPARISON: None provided TECHNIQUE: Bone densitometry is performed of the lumbar spine and left hip. FINDINGS: Total BMD of lumbar spine is 1.016 g/cm2 with a T-score of -0.3 and Z-score is 1.1. Total BMD of left hip is 0.823 g/cm2 with a T-score of -1.0 and Z-score is -0.1. FRAX SCORE: The 10 year fracture risk for a major osteoporotic fracture and hip fracture 4.5% IMPRESSION: 1. Osteopenia of the left hip 2. Normal lumbar spine 3. I would recommend follow-up in 13 months. World Health Organization criteria for BMD interpretation classify patients as Normal (T-score at or above -1.0), Osteopenic (T-score between -1.0 and -2.5), or Osteoporotic (T-score at or below -2.5). FRAX SCORE: A. All treatment decisions require clinical judgment and consideration of individual patient factors, including patient preferences, comorbidities, previous drug use, risk factors not captured in the FRAX model (e.g., frailty, falls, vitamin D deficiency, increased bone turnover, interval significant decline in bone density) and possible osafj-eq-kuvy-estimation of fracture risk by FRAX. B. In addition, the NOF Guide recommends that FDA-approved medical therapies be considered in postmenopausal women and men age greater than or equal to 50 years with a: i. Hip or vertebral (clinical or morphometric) fracture. ii. T-score of less than or equal to -2.5 at the spine or hip. iii. Ten-year fracture probability by FRAX of greater than or equal to 3% for hip fracture of greater than or equal to 20% for major osteoporotic fracture.
--- NOTE | 2025-08-10 17:57 | HMCIMG ---
CLINICAL INFORMATION Right hip and buttock pain COMPARISON None. TECHNIQUE Multiplanar multisequence MR imaging of the right hip without contrast FINDINGS Bones: No evidence for fracture or bone destruction. Marrow signal is normal. Acetabular cartilage/labrum: Superolateral labral tear. Paralabral cyst measuring up to 1.4 cm. Mild cartilage thinning. Hip joint space: No evidence for joint effusion, synovitis, or intra-articular bodies. Bursal fluid: Increased fluid signal in the greater trochanteric bursa, compatible with bursitis. Pubic symphysis: Normal. Visualized portions of the sacroiliac joints: Normal. Soft tissues: Gluteus medius and minimus tendinosis. No high-grade tendon tear. Other: Lumbar spine fusion changes, partially imaged.. IMPRESSION Mild right hip osteoarthritis with labral tear and 1.4 cm paralabral cyst. Right greater trochanteric bursitis. Right gluteus medius and minimus tendinosis. /[place]
--- NOTE | 2025-08-11 05:59 | HMCIMG ---
EXAMINATION: COMPLETE TRANSABDOMINAL ULTRASOUND OF PELVIS. CLINICAL HISTORY: Post-menopausal status. COMPARISON: CT abdomen and pelvis with contrast dated 10/10/2024. TECHNIQUE: Multiple real-time grayscale images of the pelvis were obtained with transabdominal transducer. In addition, color Doppler is medically necessary to perform to assess for vascularity and blood flow. FINDINGS: The uterus is anteverted, normal in caliber and measures 5.0 x 1.9 x 4.3 cm in the craniocaudal, AP, and transverse dimensions respectively. The endometrium measures approximately 0.3 cm. Cervix appears normal. The right ovary is normal in caliber and measures 1.4 x 1.2 x 1.5 cm. The left ovary is normal in caliber and measures 1.1 x 1.2 x 1.3 cm. There is no free fluid in the cul-de-sac. IMPRESSION: No significant abnormality. /[place]
== END | disposition home or self-care (01) ==
LOC: DAH 08:16 → RAH 08:16
PROVIDERS: ATTEND Internal Medicine Nephrology
DX: S73.191A Other sprain of right hip, initial encounter (principal); M85.88 Other specified disorders of bone density and structure, other site; M16.11 Unilateral primary osteoarthritis, right hip; M70.61 Trochanteric bursitis, right hip; M24.851 Other specific joint derangements of right hip, not elsewhere classified; R10.20 Pelvic and perineal pain unspecified side; Z78.0 Asymptomatic menopausal state; M85.80 Other specified disorders of bone density and structure, unspecified site; M25.551 Pain in right hip; X58.XXXA Exposure to other specified factors, initial encounter; Y93.89 Activity, other specified; Y92.89 Other specified places as the place of occurrence of the external cause; Y99.8 Other external cause status
CPT/HCPCS: 73721; 76856; 77080

== ENCOUNTER → 2025-09-04 | Outpatient (CLI) | payer OTHER ==
[2025-09-04 08:41] LABS: IMMATURE GRANULOCYTE ABSOLUTE 0.02 K/uL (0-1); NUCLEATED RED BLOOD CELLS 0.0 % (0.0-0.19); PLATELET COUNT (AUTO) 168 K/uL (130-400); RED BLOOD CELL COUNT(AUTO) 4.21 MIL/uL (4.00-5.50); RED CELL DISTRIBUTION WIDTH 12.5 % (11.0-15.5); WHITE BLOOD COUNT (AUTO) 6.7 K/uL (4.8-10.8)
[2025-09-04 08:41] LABS: APPEARANCE,URINE CLEAR (CLEAR); GLUCOSE, URINE (UA) NEGATIVE (NEGATIVE); LEUKOCYTE ESTERASE ,URINE NEGATIVE Leu/uL (NEGATIVE); NITRATE,URINE NEGATIVE (NEGATIVE); OCCULT BLOOD,URINE NEGATIVE (NEGATIVE)
[2025-09-04 08:47] LABS: ADD UA MICROSCOPIC NO
[2025-09-04 09:05] LABS: ASPARTATE AMINOTRANSFERASE 23.0 U/L (10-37); CREATININE 0.8 mg/dL (0.5-1.0); GLOMERULAR FILTR. RATE CALC 85.0 mL/min (>90); GLUCOSE,RANDOM 92.0 mg/dL (70-105); LDL DIRECT 78.0 mg/dL (0-99); PHOSPHORUS 3.7 mg/dL (2.5-4.9); SODIUM SERUM 136.0 mmol/L (136-145); TOTAL PROTEIN, SERUM 7.8 g/dL (6.0-8.3); UREA NITROGEN, BLOOD 14.0 mg/dL (7-18)
== END | disposition home or self-care (01) ==
LOC: LAB 07:50
PROVIDERS: ATTEND Internal Medicine Nephrology
DX: Z13.21 Encounter for screening for nutritional disorder (principal); E78.5 Hyperlipidemia, unspecified; E03.9 Hypothyroidism, unspecified; R73.03 Prediabetes; D64.9 Anemia, unspecified; R94.4 Abnormal results of kidney function studies; R53.83 Other fatigue
CPT/HCPCS: 36415; 80053; 80061; 81003; 82306; 82570; 83036; 83735; 84100; 84156; 84439; 84443; 85025